=== PATIENT | female | born 1960 | race Caucasian/White ===

== ENCOUNTER 2022-11-15 11:21 | Emergency (ER) | payer MEDICARE ==
[2022-11-15] MEDS ORDERED: PROPOFOL 20 ML ONE (13:47)
[2022-11-15] MEDS ORDERED: Fentanyl 100 MCG/2 ML VIAL ONE (13:48)
== END 2022-11-15 15:00 | disposition home or self-care (01) ==
LOC: CSHERS 11:21
DX: S52.571A Other intraarticular fracture of lower end of right radius, initial encounter for closed fracture (principal); W17.89XA Other fall from one level to another, initial encounter
CPT/HCPCS: 25605; 96374; 96375; J2704; J3010

== ENCOUNTER 2023-04-27 10:44 | Emergency (ER) | payer MEDICARE ==
[2023-04-27] MEDS ORDERED: Morphine 4 MG/ML VIAL ONE (12:32)
== END 2023-04-27 13:08 | disposition home or self-care (01) ==
LOC: CSHERS 10:44
DX: S52.022A Displaced fracture of olecranon process without intraarticular extension of left ulna, initial encounter for closed fracture (principal); G40.909 Epilepsy, unspecified, not intractable, without status epilepticus; W19.XXXA Unspecified fall, initial encounter
CPT/HCPCS: 29105; 70450; 72125; 96374; J2270

== ENCOUNTER 2023-11-15 17:37 | Inpatient (IN) | payer MEDICARE ==
[~2023-11-15 17:37] MED LIST: Iopamidol 370 76% 100 ML VIAL ONE
[2023-11-15 18:04] LABS: Hematocrit 40.6 % (34.9-44.5); Hemoglobin 13.6 g/dL (12.0-15.5); Mean Corpuscular HGB CONC 33.5 g/dL (32.0-36.0); Mean Corpuscular Hemoglobin 34.3 pg (27.0-33.0); Mean Corpuscular Volume 102.3 fl (81.6-98.3); Mean Platelet Volume 9.5 fl (7.4-10.4); Platelet Count 224 10x3/uL (150-450); RBC Distribution Width 13.1 % (11.5-14.5); Red Blood Cell (RBC) Count 3.97 10x6/uL (3.90-5.03); White Blood Cell (WBC) Count 21.5 10x3/uL (3.5-10.5)
[2023-11-15 18:11] LABS: PTT 26.4 sec (22.0-33.0); Prothrombin Time 10.9 sec (9.5-12.1)
[2023-11-15 18:20] LABS: Acetaminophen Less than 10 mcg/mL (10.0-30.0); Alcohol Less than 10.0 mg/dL (Less than 10); Magnesium 1.9 mg/dL (1.6-2.6); Salicylate Less than 8.0 mg/dL (15.0-30.0)
[2023-11-15 18:36] LABS: ALT (SGPT) 31 U/L (8-55); AST (SGOT) 48 U/L (5-34); Albumin 4.2 g/dL (3.4-4.8); Alkaline Phosphatase 108 U/L (40-110); Anion Gap 19 mmol/L (10-20); BUN (Urea Nitrogen) 11 mg/dL (9.8-20.1); Bilirubin, Total 0.8 mg/dL (0.2-1.2); Calc. Creatinine Clearance 0 mL/min (70-130); Calcium 9.1 mg/dL (7.8-10.44); Carbon Dioxide 20 mmol/L (23-31); Chloride 101 mmol/L (98-107); Estimated GFR 79; Globulin 2.4 g/dL (2.4-3.5); Glucose 150 mg/dL (80-115); Potassium 3.6 mmol/L (3.5-5.1); Protein, Total 6.6 g/dL (5.8-8.1); Sodium 136 mmol/L (136-145)
[2023-11-15] MEDS ORDERED: cefTRIAXone (ROCEPHIN) 1 GM VIAL ONE (18:39)
[2023-11-15] MEDS ORDERED: Azithromycin 500 MG VIAL ONE (18:39)
[2023-11-15] MEDS ORDERED: Acetaminophen 650 MG Suppository ONE (18:39)
[2023-11-15 18:47] LABS: Band 16 % (5-11); Lymphocytes 5 % (21-51); Monocytes 3 % (0-10); Reactive Lymphocytes 4 % (0-10)
[2023-11-15 18:49] LABS: Neutrophil 72 % (42-75); Platelet Adequacy Comment Appears Adequate; RBC Morph Comment Within Normal Limits
[2023-11-15 18:50] LABS: MDiff Complete? YES
[2023-11-15] MEDS ORDERED: Acetaminophen 650 MG Suppository PR PRN (19:05)
[2023-11-15] MEDS ORDERED: Senokot S 8.6-50 MG TAB PO PRN (19:05)
[2023-11-15] MEDS ORDERED: Acetaminophen 325 MG TAB PO PRN (19:05)
[2023-11-15] MEDS ORDERED: Ondansetron PF 4 MG/2 ML Vial IVP PRN (19:05)
[2023-11-15] MEDS ORDERED: Bisacodyl 5 MG TAB PO PRN (19:05)
[2023-11-15] MEDS ORDERED: Ondansetron ODT 4 MG TAB PO PRN (19:05)
[2023-11-15] MEDS ORDERED: Lactated Ringer's 1,000 ML IV SCH (19:15)
[2023-11-15] MEDS ORDERED: Electrolyte Replacement Protocol 1 EACH FS SCH (19:15)
[2023-11-15] MEDS ORDERED: Lorazepam 2 MG/ML VIAL SLOW IVP PRN (19:39)
[2023-11-15] MEDS: Azithromycin 500 MG in Sodium Chloride 0.9% 250 ML 250 ML IVPB SCH (19:44)
[2023-11-15] MEDS ORDERED: Magnesium 2 GM/50 ML(in water) 2 GM in Premix 1 BAG IVPB SCH (19:45)
[2023-11-15] MEDS ORDERED: Magnesium 2 GM/50 ML BAG (IN WATER) ONE (19:51)
[2023-11-15 20:14] LABS: Magnesium 1.9 mg/dL (1.6-2.6); Phosphorus 3.4 mg/dL (2.3-4.7)
[2023-11-15] MEDS ORDERED: Phenytoin Extended Release 100 MG CAP PO SCH (21:00)
[2023-11-15] MEDS ORDERED: traZODone HCl 50 MG TAB ONE (21:30)
[2023-11-15] MEDS ORDERED: Phenytoin Extended Release 100 MG CAP ONE (21:30)
[2023-11-15] MEDS ORDERED: Famotidine 20 MG TAB ONE (21:32)
[2023-11-15] MEDS: Famotidine/PF 20 mg/2ml Vial SLOW IVP SCH (21:45)
[2023-11-15] MEDS: Famotidine 20 MG TAB PO SCH (21:45)
[2023-11-15] MEDS: carBAMazepine 200 MG TAB PO SCH (21:45)
[2023-11-15] MEDS: Lactated Ringer's 1,000 ML IV SCH (21:45)
[2023-11-15] MEDS: traZODone HCl 50 MG TAB PO SCH (21:59)
[2023-11-15 22:01] LABS: Actual Bicarbonate (HCO3v) 24.4 mEq/L (22-28); Analyzer IN Cardio CS ER; Base Excess 0.9 mEq/L (-2 - +2); Calcium, Ionized (venous) 1.09 mmol/L (1.16-1.32); Chloride (VBG) 97 mmol/L (98-106); Hematocrit-VBG 41 % (36.0-47.0); Potassium (VBG) 3.34 mmol/L (3.70-5.30); Puncture Site Other Site; RapidComm Collect By LAB; Sodium 134 mmol/L (133-146); pH (venous) 7.457 (7.32-7.43)
[2023-11-15 22:05] LABS: Bilirubin Neg (Negative); Blood, Urine 50 (Negative); Clarity Clear (Clear); Glucose, Urine (Dipstick) Normal (Negative); Ketone, Urine Negative (Negative); Leukocyte 500 (Negative); Nitrite Positive (Negative); Protein, Urine (Dipstick) 30 mg/dl (Neg-Trace); Specific Gravity, Urine 1.005 (1.005-1.030); Urobilinogen Normal mg/dL (Less than 2)
[2023-11-15 22:15] LABS: Amphetamine Not Detected (NotDetected); Barbiturates Screen Detected (NotDetected); Benzodiazepine Screen Not Detected (NotDetected); Cocaine Metabolite Screen Not Detected (NotDetected); Methadone Not Detected (NotDetected); Methamphetamine Not Detected (NotDetected); Opiate Screen Not Detected (NotDetected); Oxycodone Screen Not Detected (NotDetected); Phencyclidine (PCP) Not Detected (NotDetected); THC/Cannabinoid Screen Not Detected (NotDetected); Tricyclic Screen Not Detected (NotDetected)
[2023-11-15 22:20] LABS: Bacteria/HPF Rare-Few HPF (None Seen); CAUTI Indications for Culture Alt mental st,lethar; RBC/HPF 0-3 HPF (0-3); Squamous Epithelial 0-3 HPF (0-3)
[2023-11-15 22:22] LABS: Urine Culture Reflex No No
[2023-11-15 23:11] LABS: SARS-CoV-2 NAA Rapid Test Not Detected (NotDetected)
[2023-11-15] MEDS ORDERED: Lorazepam 2 MG/ML VIAL ONE (23:26)
[2023-11-16 03:34] LABS: Hematocrit 33.3 % (34.9-44.5); Hemoglobin 11.3 g/dL (12.0-15.5); Mean Corpuscular HGB CONC 33.9 g/dL (32.0-36.0); Mean Corpuscular Hemoglobin 34.3 pg (27.0-33.0); Mean Corpuscular Volume 101.2 fl (81.6-98.3); Mean Platelet Volume 9.4 fl (7.4-10.4); Platelet Count 184 10x3/uL (150-450); RBC Distribution Width 13.2 % (11.5-14.5); Red Blood Cell (RBC) Count 3.29 10x6/uL (3.90-5.03); White Blood Cell (WBC) Count 21.7 10x3/uL (3.5-10.5)
[2023-11-16 03:51] LABS: Anion Gap 11 mmol/L (10-20); BUN (Urea Nitrogen) 11 mg/dL (9.8-20.1); Calc. Creatinine Clearance 0 mL/min (70-130); Calcium 8.5 mg/dL (7.8-10.44); Carbon Dioxide 25 mmol/L (23-31); Chloride 106 mmol/L (98-107); Estimated GFR 96; Glucose 132 mg/dL (80-115); Magnesium 2.3 mg/dL (1.6-2.6); Potassium 3.2 mmol/L (3.5-5.1); Sodium 139 mmol/L (136-145)
[2023-11-16 04:22] LABS: Band 24 % (5-11); Lymphocytes 1 % (21-51); Metamyelocyte 7 % (0-0); Monocytes 9 % (0-10); Reactive Lymphocytes 2 % (0-10)
[2023-11-16 04:24] LABS: Neutrophil 57 % (42-75)
[2023-11-16 04:27] LABS: Platelet Adequacy Comment Appears Adequate; Poikilocytosis SLIGHT = 6-15 cells (100X) (0-5/hpf); Tear Drops SLIGHT = 2-5 cells (100X) (0-1/hpf)
[2023-11-16 04:28] LABS: MDiff Complete? YES
[2023-11-16] MEDS ORDERED: Acetaminophen 325 MG TAB ONE ×2 (05:37→21:36)
[2023-11-16] MEDS: Lactated Ringer's 1,000 ML IV SCH ×2 (06:15→20:00)
[2023-11-16] MEDS ORDERED: Enoxaparin 40 MG (0.4 mL) SYRINGE ONE (07:36)
[2023-11-16] MEDS ORDERED: Famotidine/PF 20 mg/2ml Vial ONE (07:37)
[2023-11-16] MEDS ORDERED: Potassium Chloride 20 MEQ TAB PO SCH (08:00)
[2023-11-16] MEDS: Famotidine/PF 20 mg/2ml Vial SLOW IVP SCH (08:06)
[2023-11-16] MEDS: Enoxaparin 40 MG (0.4 mL) SYRINGE SC SCH (08:06)
[2023-11-16] MEDS: Rosuvastatin 20 MG TAB PO SCH (08:16)
[2023-11-16] MEDS: Aripiprazole 10 MG TAB PO SCH (08:16)
[2023-11-16] MEDS: Escitalopram Oxalate 10 mg Tablet PO SCH (08:16)
[2023-11-16] MEDS ORDERED: Potassium Chloride 20 MEQ (100 mL) BAG ONE ×2 (08:24→10:51)
[2023-11-16] MEDS: carBAMazepine 200 MG TAB PO SCH ×2 (08:25→20:00)
[2023-11-16] MEDS: Potassium Chloride 20 MEQ in Premix 1 BAG IVPB SCH ×2 (08:35→10:52)
[2023-11-16] MEDS: Famotidine 20 MG TAB PO SCH ×2 (09:49→21:41)
[2023-11-16] MEDS ORDERED: cefTRIAXone\\ROCEPHIN 1 GM in Sodium Chloride 0.9% 100 ML IVPB SCH (19:00)
[2023-11-16] MEDS ORDERED: Phenytoin Extended Release 100 MG CAP PO SCH (19:15)
[2023-11-16] MEDS ORDERED: Azithromycin 500 MG VIAL ONE (19:27)
[2023-11-16] MEDS ORDERED: cefTRIAXone (ROCEPHIN) 1 GM VIAL ONE (19:27)
[2023-11-16] MEDS ORDERED: Phenytoin Extended Release 100 MG CAP ONE (19:27)
[2023-11-16] MEDS: Azithromycin 500 MG in Sodium Chloride 0.9% 250 ML 250 ML IVPB SCH (20:00)
[2023-11-16] MEDS ORDERED: traZODone HCl 50 MG TAB ONE (20:53)
[2023-11-16] MEDS ORDERED: Lorazepam 1 MG TAB ONE (20:53)
[2023-11-16] MEDS ORDERED: Famotidine 20 MG TAB ONE (20:55)
[2023-11-16] MEDS ORDERED: Lorazepam 1 MG TAB PO SCH (21:00)
[2023-11-16] MEDS: traZODone HCl 50 MG TAB PO SCH (21:41)
[2023-11-17 04:38] LABS: Bilirubin Neg (Negative); Blood, Urine 10 (Negative); Clarity Clear (Clear); Glucose, Urine (Dipstick) Normal (Negative); Ketone, Urine Negative (Negative); Leukocyte 100 (Negative); Nitrite Positive (Negative); Protein, Urine (Dipstick) 30 mg/dl (Neg-Trace); Specific Gravity, Urine 1.015 (1.005-1.030); Urobilinogen Normal mg/dL (Less than 2)
[2023-11-17 04:51] LABS: Legionella Urinary Ag Negative (Negative); Strep pneumo Urine Ag POSITIVE (NEGATIVE)
[2023-11-17 05:13] LABS: Bacteria/HPF None Seen HPF (None Seen); RBC/HPF None Seen HPF (0-3); Squamous Epithelial 0-3 HPF (0-3); WBC/HPF 0-3 HPF (0-3)
[2023-11-17] MEDS: Aripiprazole 10 MG TAB PO SCH (08:58)
[2023-11-17] MEDS: Escitalopram Oxalate 10 mg Tablet PO SCH (08:59)
[2023-11-17] MEDS: carBAMazepine 200 MG TAB PO SCH (08:59)
[2023-11-17] MEDS: Rosuvastatin 20 MG TAB PO SCH (09:00)
[2023-11-17] MEDS ORDERED: Famotidine 20 MG TAB ONE (09:35)
[2023-11-17] MEDS: Famotidine 20 MG TAB PO SCH (09:36)
[2023-11-17] MEDS: Enoxaparin 40 MG (0.4 mL) SYRINGE SC SCH (09:37)
[2023-11-17 10:13] VITALS: BP 145/73; TEMP 99.1
[2023-11-17] MEDS ORDERED: Phenytoin Extended Release 100 MG CAP PO SCH (21:00)
== END 2023-11-17 10:32 | disposition home or self-care (01) | DRG 871 ==
LOC: CSHERS 17:37 → CSHERHOLD 19:05 → OBSVTOIN 11-17 09:34
PROVIDERS: ADMIT Family Medicine; ATTEND Nurse Practitioner Family
PROC: 4A043R1 Measurement of Venous Saturation, Peripheral, Percutaneous Approach (ICD-10-PCS; principal; 2023-11-15)
PROC: 3E03329 Introduction of Other Anti-infective into Peripheral Vein, Percutaneous Approach (ICD-10-PCS; 2023-11-15)
DX: A41.9 Sepsis, unspecified organism (principal); J18.9 Pneumonia, unspecified organism; G93.40 Encephalopathy, unspecified; R65.20 Severe sepsis without septic shock; I65.22 Occlusion and stenosis of left carotid artery; F32.A Depression, unspecified; Z79.899 Other long term (current) drug therapy; Z88.8 Allergy status to other drugs, medicaments and biological substances; E87.6 Hypokalemia; D53.9 Nutritional anemia, unspecified; G40.909 Epilepsy, unspecified, not intractable, without status epilepticus; N18.2 Chronic kidney disease, stage 2 (mild); Z86.16 Personal history of COVID-19
CPT/HCPCS: 0042T; 36415; 36416; 70450; 71045; 80048; 80053; 80306; 80307; 81001; 82805; 83605; 83735; 84100; 84145; 84443; 85025; 85610; 85730; 87040; 87086; 87449; 87899; 93005; 93880; J0456; J0696; J1650; J2060; J3475; J3480; J3490; J7050; J7120; Q9967; S0028

== ENCOUNTER 2024-10-26 08:35 | Outpatient (CLI) | payer MEDICARE | END 2024-10-26 08:36 | disposition home or self-care (01) | LOC: CSHMAMMO 08:35 | PROVIDERS: ATTEND Specialist | DX: Z12.31 Encounter for screening mammogram for malignant neoplasm of breast (principal); Z13.820 Encounter for screening for osteoporosis; M81.0 Age-related osteoporosis without current pathological fracture; M85.851 Other specified disorders of bone density and structure, right thigh; Z98.82 Breast implant status | CPT/HCPCS: 77063; 77067; 77080 ==

== ENCOUNTER 2024-11-11 08:45 | Inpatient (IN) | payer MEDICARE ==
[2024-11-11] MEDS ORDERED: Acetaminophen 500 MG TAB ONE (10:07)
[2024-11-11] MEDS ORDERED: Piperacillin/Tazobactam 4.5 GM VIAL ONE (10:08)
[2024-11-11 10:15] LABS: ALT (SGPT) 66 U/L (8-55); AST (SGOT) 72 U/L (5-34); Albumin 3.1 g/dL (3.4-4.8); Alkaline Phosphatase 157 U/L (40-110); Anion Gap 15 mmol/L (10-20); BUN (Urea Nitrogen) 17 mg/dL (9.8-20.1); Bilirubin, Total 0.6 mg/dL (0.2-1.2); Calc. Creatinine Clearance 0 mL/min (70-130); Calcium 9.2 mg/dL (7.8-10.44); Carbon Dioxide 25 mmol/L (23-31); Chloride 100 mmol/L (98-107); Estimated GFR 85; Globulin 3.7 g/dL (2.4-3.5); Glucose 162 mg/dL (80-115); Potassium 3.3 mmol/L (3.5-5.1); Protein, Total 6.8 g/dL (5.8-8.1); Sodium 137 mmol/L (136-145)
[2024-11-11 10:19] LABS: Hematocrit 35.2 % (34.9-44.5); Hemoglobin 11.9 g/dL (12.0-15.5); Mean Corpuscular HGB CONC 33.8 g/dL (32.0-36.0); Mean Corpuscular Hemoglobin 34.9 pg (27.0-33.0); Mean Corpuscular Volume 103.2 fL (81.6-98.3); Mean Platelet Volume 9.2 fL (7.4-10.4); RBC Distribution Width 12.7 % (11.5-14.5); Red Blood Cell (RBC) Count 3.41 10x6/uL (3.90-5.03); White Blood Cell (WBC) Count 14.3 10x3/uL (3.5-10.5)
[2024-11-11 10:20] LABS: MDiff Complete? YES; Troponin I Less than 0.010 ng/mL (< 0.028)
[2024-11-11 10:28] LABS: Actual Bicarbonate (HCO3v) 24.9 mEq/L (22-28); Analyzer IN Cardio CS ER; Calcium, Ionized (venous) 1.13 mmol/L (1.16-1.32); Chloride (VBG) 99 mmol/L (98-106); Hematocrit-VBG 38 % (36.0-47.0); Potassium (VBG) 3.51 mmol/L (3.70-5.30); Puncture Site Other Site; RapidComm Collect By LAB; Sodium 138 mmol/L (133-146); pH (venous) 7.443 (7.32-7.43)
[2024-11-11 10:35] LABS: Band 9 % (5-11); Lymphocytes 10 % (21-51); Monocytes 3 % (0-10); Neutrophil 78 % (42-75)
[2024-11-11 10:46] LABS: Platelet Count 266 10x3/uL (130-400)
[2024-11-11 13:51] LABS: Bilirubin Neg (Negative); Blood, Urine 25 (Negative); Clarity Clear (Clear); Glucose, Urine (Dipstick) Normal (Negative); Ketone, Urine 15 mg/dL (Negative); Leukocyte 100 (Negative); Nitrite Positive (Negative); Protein, Urine (Dipstick) 100 mg/dl (Neg-Trace)
[2024-11-11 13:58] LABS: Bacteria/HPF 4+ HPF (None Seen); CAUTI Indications for Culture Alt mental st,lethar; RBC/HPF 0-3 HPF (0-3); Squamous Epithelial 0-3 HPF (0-3)
[2024-11-11 13:59] LABS: Urine Culture Reflex No No
[2024-11-11 15:32] VITALS: BMI 24.6
[2024-11-11] MEDS: Azithromycin 500 MG in Sodium Chloride 0.9% 250 ML 250 ML IVPB SCH (16:00)
[2024-11-11] MEDS: Ondansetron PF 4 MG/2 ML Vial IVP PRN (16:44)
[2024-11-11] MEDS: cefTRIAXone\\ROCEPHIN 1 GM in Sodium Chloride 0.9% 100 ML IVPB SCH (16:44)
[2024-11-11] MEDS: NS 0.9% w/ 20 MEQ KCL 1,000 ML/1,000 ML BAG IV SCH (16:45)
[2024-11-11] MEDS: Scopolamine 1 mg/72 hour Patch TD SCH (17:55)
[2024-11-11] MEDS: Acetaminophen 325 MG TAB PO PRN (18:48)
[2024-11-11] MEDS: Benzonatate 100 MG CAP PO PRN (18:48)
[2024-11-11] MEDS: Phenytoin Extended Release 100 MG CAP PO SCH (21:49)
[2024-11-11] MEDS: carBAMazepine 200 MG TAB PO SCH (21:49)
[2024-11-11] MEDS: Lorazepam 1 MG TAB PO SCH (21:50)
[2024-11-11] MEDS: traZODone HCl 50 MG TAB PO PRN (22:10)
[2024-11-12 04:52] LABS: #Basophils 0.03 10x3/uL (0.0-0.2); #Eosinophils 0.07 10x3/uL (0.0-0.5); #Monocytes 0.72 10x3/uL (0.0-1.1); #Neutrophils 9.07 10x3/uL (1.5-8.4); %Basophils 0.3 % (0.0-2.0); %Eosinophils 0.6 % (0.0-6.0); %Lymphocytes 7.6 % (18.0-47.0); %Monocytes 6.7 % (0.0-10.0); Hematocrit 32.2 % (34.9-44.5); Hemoglobin 10.7 g/dL (12.0-15.5); Mean Corpuscular HGB CONC 33.2 g/dL (32.0-36.0); Mean Corpuscular Hemoglobin 34.6 pg (27.0-33.0); Mean Corpuscular Volume 104.2 fL (81.6-98.3); Mean Platelet Volume 9.2 fL (7.4-10.4); Platelet Count 199 10x3/uL (150-450); RBC Distribution Width 12.4 % (11.5-14.5); Red Blood Cell (RBC) Count 3.09 10x6/uL (3.90-5.03); White Blood Cell (WBC) Count 10.8 10x3/uL (3.5-10.5)
[2024-11-12 05:11] LABS: Anion Gap 14 mmol/L (10-20); BUN (Urea Nitrogen) 8 mg/dL (9.8-20.1); Calc. Creatinine Clearance 89 mL/min (70-130); Calcium 8.5 mg/dL (7.8-10.44); Carbon Dioxide 24 mmol/L (23-31); Chloride 107 mmol/L (98-107); Estimated GFR 98; Glucose 115 mg/dL (80-115); Potassium 3.9 mmol/L (3.5-5.1); Sodium 141 mmol/L (136-145)
[2024-11-12] MEDS: Rosuvastatin 20 MG TAB PO SCH (09:20)
[2024-11-12] MEDS: Aripiprazole 10 MG TAB PO SCH (09:20)
[2024-11-12] MEDS: carBAMazepine 200 MG TAB PO SCH (09:20)
[2024-11-12] MEDS: Enoxaparin 40 MG (0.4 mL) SYRINGE SC SCH (09:25)
[2024-11-13 04:53] LABS: #Basophils 0.02 10x3/uL (0.0-0.2); #Eosinophils 0.05 10x3/uL (0.0-0.5); #Monocytes 0.61 10x3/uL (0.0-1.1); %Basophils 0.2 % (0.0-2.0); %Eosinophils 0.6 % (0.0-6.0); %Lymphocytes 10.9 % (18.0-47.0); %Neutrophils 80.5 % (40.0-75.0); Hematocrit 32.5 % (34.9-44.5); Hemoglobin 10.3 g/dL (12.0-15.5); Mean Corpuscular HGB CONC 31.7 g/dL (32.0-36.0); Mean Corpuscular Hemoglobin 33.2 pg (27.0-33.0); Mean Corpuscular Volume 104.8 fL (81.6-98.3); Mean Platelet Volume 9.3 fL (7.4-10.4); Platelet Count 242 10x3/uL (150-450); RBC Distribution Width 12.3 % (11.5-14.5); White Blood Cell (WBC) Count 8.7 10x3/uL (3.5-10.5)
[2024-11-13 05:02] LABS: Anion Gap 14 mmol/L (10-20); BUN (Urea Nitrogen) 5 mg/dL (9.8-20.1); Calc. Creatinine Clearance 97 mL/min (70-130); Calcium 8.7 mg/dL (7.8-10.44); Carbon Dioxide 25 mmol/L (23-31); Chloride 108 mmol/L (98-107); Estimated GFR 100; Glucose 105 mg/dL (80-115); Potassium 4.2 mmol/L (3.5-5.1); Sodium 143 mmol/L (136-145)
[2024-11-13 07:53] VITALS: TEMP 99.3
[2024-11-13] MEDS: carBAMazepine 200 MG TAB PO SCH (09:52)
[2024-11-13 13:11] VITALS: BP 119/79
== END 2024-11-13 12:03 | disposition home or self-care (01) | DRG 871 ==
LOC: CSHERS 08:45 → CSHTELE 14:51
PROVIDERS: ADMIT Internal Medicine; ATTEND Internal Medicine
DX: A41.9 Sepsis, unspecified organism (principal); G93.41 Metabolic encephalopathy; J18.9 Pneumonia, unspecified organism; N18.2 Chronic kidney disease, stage 2 (mild); G40.909 Epilepsy, unspecified, not intractable, without status epilepticus; Z88.8 Allergy status to other drugs, medicaments and biological substances
CPT/HCPCS: 36415; 70450; 71046; 80048; 80053; 81001; 82805; 83605; 84443; 84484; 85025; 87040; 87077; 87086; 87149; 87428; 93005; 94760; 96361; 96365; J0456; J0696; J1650; J2405; J2543; J3480; J7050